=== PATIENT | male | born 1970 | race Asian ===

== ENCOUNTER 2022-11-13 15:11 | Outpatient (AMB) | payer MEDICAID, SELFPAY ==
[2022-11-13 15:20] VITALS: BP 124/72; PULSE 78; O2SAT 97; BMI 23.7
--- NOTE | 2022-11-13 15:20 | MHC.OFFVIS ---
Intake Vital Signs 11/13/22 15:20 Height 5 ft 8 in Weight 156 lb BMI 23.7 BP 124/72 Blood Pressure Location Rt brachial Position Sitting Pulse 78 Pulse Source Pulse Oximeter Pulse Oximetry (%) 97 Oxygen Delivery Method Room Air Intake Visit Reasons: ENP-Snoring - Confirmed Intake Note: Patient presents for snoring Allergies No Known Allergies Allergy (Verified 11/13/22 15:22) HPI HPI Comments History of Present Illness Details 52 y/o male patient presents with his for new in-person visit for sleep consultation. Pt's helps for history and interpretation. His reports that pt snoring loudly and it has been worsening. She witnessed apnea spells and gasping frequently. Pt reports non refreshing sleep with daytime sleepiness. He does not have energy, and being tired. He drinks 2 beers every night. Sleep questionnaire: Have you ever been diagnosed with a sleep disorder? No. Have you ever had a sleep study in the past? No. Have you ever been treated for a sleep disorder? No. Do you take medications for a sleep disorder? No. Do you snore? Yes. Do you wake up gasping at night? Yes. Do you have episodes of apneas? Yes. If yes, are they witnessed? Yes, by his . Do you have episodes of nocturnal chest pain or dyspnea? Yes, intermittently. Do you have difficulty initiating sleep? No. Do you have difficulty maintaining sleep? No. Do you wake up tired? Yes. Do you have headaches upon awakening? Yes. Do you wake up with dry mouth or throat? No. Do you have GERD? Yes. Do you have nocturia? No. Do you have nocturnal leg cramps? Yes. Do you have symptoms of restless legs? Not really, but numbness. Do you act out your dreams? No. Sleep hygiene questionnaire: What is your usual sleep routine? Usual bedtime is at 1 am ; Usual wake up time is at 8 am. Do you take naps? No. Is your sleep environment cool, dark, and quiet? Yes. Do you exercise? Yes. Do you take caffeine or other stimulants? No. Do you use electronics in bed? Yes. What is your work schedule? 11 am to 10 pm. Hypersomnolence questionnaire: Do you have daytime tiredness or fatigue? Yes. Do you easily fall asleep when inactive? No. Have you ever had episodes of sudden weakness? No. Have you ever had episodes of sudden weakness associated with strong emotions? No. PFSH Family History (Updated 11/13/22 @ 15:24 by GAIL Ramirez) Father Parkinson disease Mother Lung cancer Brother Liver cancer Social History (Updated 11/13/22 @ 15:24 by GAIL Ramirez) Alcohol intake: current Patient Tobacco Use Status: Never used Tobacco Review of Systems Const All systems reviewed & are unremarkable except as noted in HPI and below ENT Reports Normal hearing present Neuro Reports Normal hearing present Physical Exam Vital Signs: Last Vital Signs Pulse 78 11/13/22 15:20 BP 124/72 11/13/22 15:20 Pulse Ox 97 11/13/22 15:20 Oxygen Delivery Method Room Air 11/13/22 15:20 BMI result Body Mass Index 23.7 Const General: cooperative Nutritional Appearance: average body habitus Orientation/consciousness: patient oriented x3 Limitations: language barrier Neck Neck: Yes full ROM and Yes supple Resp Effort & Inspection: normal respiratory effort and able to speak in complete sentences Neuro General: patient oriented x3, gait normal and moves all extremities Cranial nerves: Yes Bilaterally intact EOM present, Yes Normal facial strength present, Yes Midline tongue present, Yes Symmetric palate elevation present and Yes Normal hearing present Cognition (Neuro): normal cognition Gait exam (Neuro): Normal gait present Motor exam (neuro): 5/5 motor strength present throughout, Pronator motor function not present and no tremor noted Psych Appearance: grossly normal Mental Status: mental status grossly normal Speech and movement: Normal speech and movement present Affect: normal affect Attitude: cooperative Assessment & Plan Assessment & Plan (1) Witnessed episode of apnea: Code(s): R06.81 - Apnea, not elsewhere classified (2) Daytime sleepiness: Code(s): R40.0 - Somnolence (3) Loud snoring: Code(s): R06.83 - Snoring Plan Pt is advised to undergo home sleep study to assess for sleep apnea. Will f/u with pt after study to discuss results and appropriate treatment options. Sleep hygiene education provided. Limit electronic use before bedtime. Advised patient to cut down alcohol intake. Start magnesium 400 mg qHS for legs cramping. Pt to call with any worsening concerns or questions. Orders: Orders RT home sleep study Today R06.81 - Apnea, not elsewhere classified, R06.83 - Snoring, R40.0 - Somnolence Medications: New magnesium oxide 400 mg PO DAILY 30 days 30 tabs 2RF Coding Level of Care Code New Pt Level 4 (08860) Diagnoses Witnessed episode of apnea R06.81 Daytime sleepiness R40.0 Loud snoring R06.83
== END 2022-11-13 15:57 | disposition home or self-care (01) ==
PROVIDERS: Visit Provider Nurse Practitioner Family
DX: R06.81 Apnea, not elsewhere classified (principal); R40.0 Somnolence; R06.83 Snoring
CPT/HCPCS: 99204

== ENCOUNTER → 2022-11-13 15:11 | Outpatient (BNVA) | payer MEDICAID, SELFPAY | PROVIDERS: Visit Provider Nurse Practitioner Family | DX: R06.81 Apnea, not elsewhere classified (principal); R40.0 Somnolence; R06.83 Snoring | CPT/HCPCS: 99204 ==

== ENCOUNTER → 2022-12-23 10:02 | Outpatient (REF) | payer MEDICAID, SELFPAY | LOC: HO.SL 10:02 | PROVIDERS: Visit Provider Nurse Practitioner Family | DX: G47.33 Obstructive sleep apnea (adult) (pediatric) (principal); R06.83 Snoring; R40.0 Somnolence | CPT/HCPCS: 95806 ==

== ENCOUNTER → 2022-12-23 10:09 | Outpatient (BNV) | payer MEDICAID, SELFPAY | PROVIDERS: Visit Provider Psychiatry & Neurology Neurology | DX: G47.33 Obstructive sleep apnea (adult) (pediatric) (principal) | CPT/HCPCS: 95806 ==

== ENCOUNTER 2023-03-19 15:13 | Outpatient (AMB) | payer MEDICAID, SELFPAY ==
--- NOTE | 2023-03-19 15:22 | MHC.OFFVIS ---
Intake Vital Signs 03/19/23 15:23 Height 5 ft 8 in Weight 158 lb 8 oz BMI 24.1 BP 138/70 Blood Pressure Location Rt brachial Position Sitting Respiration 16 Pulse 76 Pulse Source Pulse Oximeter Pulse Oximetry (%) 97 Oxygen Delivery Method Room Air Intake Visit Reasons: 4m follow up Snoring- Confirmed Intake Note: Pt presents to the office for a 4 month follow up for snoring. Allergies No Known Allergies Allergy (Verified 03/19/23 15:23) HPI HPI Comments History of Present Illness Details 52 y/o male patient presents for follow up of sleep study. The home sleep study result was significant for a moderate degree of sleep apnea. The AHI was 15/hr and oxygen jaky was 81%. Pt started APAP at [id number] in February. The CPAP compliance and therapy response reviewed. The usage days 24 days and the average usage hours 4 hrs 40 min. The max pressure was 13.8 and the residual AHI was 2.1/hr. Pt reports he sleeps much better, refreshed in the morning and daytime sleepiness has improved. He still drink 2 cans of beer daily. PFSH Family History Father Parkinson disease Mother Lung cancer Brother Liver cancer Social History Alcohol intake: current Patient Tobacco Use Status: Never used Tobacco Review of Systems Const All systems reviewed & are unremarkable except as noted in HPI and below ENT Reports Normal hearing present Neuro Reports Normal hearing present Physical Exam Vital Signs: Last Vital Signs Pulse 76 03/19/23 15:23 Resp 16 03/19/23 15:23 BP 138/70 03/19/23 15:23 Pulse Ox 97 03/19/23 15:23 Oxygen Delivery Method Room Air 03/19/23 15:23 BMI result Body Mass Index 24.1 Const General: cooperative Nutritional Appearance: average body habitus Orientation/consciousness: patient oriented x3 Limitations: language barrier Neck Neck: Yes full ROM and Yes supple Resp Effort & Inspection: normal respiratory effort and able to speak in complete sentences Neuro General: patient oriented x3, gait normal and moves all extremities Cranial nerves: Yes Bilaterally intact EOM present, Yes Normal facial strength present, Yes Midline tongue present, Yes Symmetric palate elevation present and Yes Normal hearing present Cognition (Neuro): normal cognition Gait exam (Neuro): Normal gait present Motor exam (neuro): 5/5 motor strength present throughout, Pronator motor function not present and no tremor noted Psych Appearance: grossly normal Mental Status: mental status grossly normal Speech and movement: Normal speech and movement present Affect: normal affect Attitude: cooperative Assessment & Plan Assessment & Plan (1) Sleep apnea: Comment: A moderate degree of sleep apnea. The AHI was 15/hr and oxygen jaky was 81%. Code(s): G47.30 - Sleep apnea, unspecified Plan Continue to use APAP [id number] as patient experiences good clinical effects, rested and refreshing sleep and daytime sleepiness has improved. Stressed compliance, use CPAP nightly and more than 4 hrs. Reduce alcohol intake. Coding Level of Care Code Est Pt Level 3 (59283) Diagnoses Sleep apnea G47.30
[2023-03-19 15:23] VITALS: BP 138/70; PULSE 76; RESP 16; O2SAT 97; BMI 24.1
== END 2023-03-19 15:40 | disposition home or self-care (01) ==
PROVIDERS: PCP Physician Assistant; Visit Provider Nurse Practitioner Family
DX: G47.30 Sleep apnea, unspecified (principal)
CPT/HCPCS: 99213

== ENCOUNTER → 2023-03-19 15:13 | Outpatient (BNVA) | payer MEDICAID, SELFPAY | PROVIDERS: PCP Physician Assistant; Visit Provider Nurse Practitioner Family | DX: G47.30 Sleep apnea, unspecified (principal) | CPT/HCPCS: 99212 ==

== ENCOUNTER 2023-12-24 15:31 | Outpatient (AMB) | payer MEDICAID, SELFPAY ==
--- NOTE | 2023-12-24 15:36 | A.OFFVIS_ITS ---
Vital Signs 12/24/23 15:38 Height 5 ft 8 in Weight 156 lb BMI 23.7 BP 110/62 Blood Pressure Location Rt brachial Position Sitting Respiration 16 Pulse 84 Pulse Source Pulse Oximeter Pulse Oximetry (%) 98 Oxygen Delivery Method Room Air Intake Visit Reasons: 6 mo f/u-Snoring- Intake Note: Pt presents to the office for a 9 month follow up for GERONIMO. Field Sales Specialist Required: No Allergies No Known Allergies Allergy (Verified 12/24/23 15:37) HPI Comments Details: 53 y/o male patient presents for follow up of sleep study. The home sleep study result was significant for a moderate degree of sleep apnea. The AHI was 15/hr and oxygen jaky was 81%. Pt started APAP at [id number] in February. The CPAP compliance and therapy response reviewed. 09/17/23-12/15/23 usage 62% - missed days due to visiting his mother who has cancer The max pressure was 12.3 and the residual AHI was 1.8/hr. median hrs used - 5hrs 15 mins Pt reports he sleeps much better, refreshed in the morning and daytime sleepiness has improved. He still drink 2 cans of beer daily. PFSH Family History Father Parkinson disease Mother Lung cancer Brother Liver cancer Social History Alcohol intake: current Patient Tobacco Use Status: Never used Tobacco Review of Systems ENT Reports Normal hearing present Neuro Reports Normal hearing present Physical Exam Vital Signs: Last Vital Signs Pulse 84 12/24/23 15:38 Resp 16 12/24/23 15:38 BP 110/62 12/24/23 15:38 Pulse Ox 98 12/24/23 15:38 Oxygen Delivery Method Room Air 12/24/23 15:38 BMI result Body Mass Index 23.7 Const General: cooperative Nutritional Appearance: average body habitus Orientation/consciousness: patient oriented x3 Limitations: language barrier Neck Neck: Yes full ROM and Yes supple Resp Effort & Inspection: normal respiratory effort and able to speak in complete sentences Neuro General: patient oriented x3, gait normal and moves all extremities Cranial nerves: Yes Bilaterally intact EOM present, Yes Normal facial strength present, Yes Midline tongue present, Yes Symmetric palate elevation present and Yes Normal hearing present Cognition (Neuro): normal cognition Assessment & Plan Assessment & Plan (1) Sleep apnea: Comment: A moderate degree of sleep apnea. The AHI was 15/hr and oxygen jaky was 81%. Code(s): G47.30 - Sleep apnea, unspecified Category: Medical Plan Continue to use APAP [id number] as patient experiences good clinical effects, rested and refreshing sleep and daytime sleepiness has improved. Stressed compliance, use CPAP nightly and more than 4 hrs. Reduce alcohol intake. Coding Level of Care Code Est Pt Level 4 (53077) Diagnoses Sleep apnea G47.30
[2023-12-24 15:38] VITALS: BP 110/62; PULSE 84; RESP 16; O2SAT 98; BMI 23.7
== END 2023-12-24 15:52 | disposition home or self-care (01) ==
PROVIDERS: Absent Provider Psychiatry & Neurology Neurology; PCP Physician Assistant; Visit Provider Psychiatry & Neurology Neurology
DX: G47.30 Sleep apnea, unspecified (principal)
CPT/HCPCS: 99214

== ENCOUNTER → 2023-12-24 15:31 | Outpatient (BNVA) | payer MEDICAID, SELFPAY | PROVIDERS: Absent Provider Psychiatry & Neurology Neurology; PCP Physician Assistant; Visit Provider Psychiatry & Neurology Neurology | DX: G47.30 Sleep apnea, unspecified (principal) | CPT/HCPCS: 99212 ==

== ENCOUNTER 2024-12-22 14:57 | Outpatient (AMB) | payer MEDICAID, SELFPAY ==
[2024-12-22 15:03] VITALS: BP 120/84; PULSE 85; O2SAT 96; BMI 24.1
--- NOTE | 2024-12-22 15:03 | A.OFFVIS_ITS ---
Vital Signs 12/22/24 15:03 Height 5 ft 8 in Weight 158 lb 4 oz BMI 24.1 BP 120/84 Blood Pressure Location Rt brachial Position Sitting Pulse 85 Pulse Source Pulse Oximeter Pulse Oximetry (%) 96 Oxygen Delivery Method Room Air Intake Visit Reasons: 1yr follow up Intake Note: Follow up Sleep apnea Central Supply Technician Supervisor Required: No Accompanied by: Spouse Allergies No Known Allergies Allergy (Verified 12/22/24 15:03) HPI Comments Details: 53 y/o male patient presents for follow up of sleep study. The home sleep study result was significant for a moderate degree of sleep apnea. The AHI was 15/hr and oxygen jaky was 81%. Pt started APAP at [id number] in February. The CPAP compliance and therapy response reviewed. 09/29- 12/30 usage 19% The max pressure was 12.3 and the residual AHI was 1.8/hr. median hrs used - 13hrs Pt reports he sleeps much better, refreshed in the morning and daytime sleepiness has improved. He still drink 2 cans of beer daily. PFSH Family History Father Parkinson disease Mother Lung cancer Brother Liver cancer Social History Alcohol intake: current Patient Tobacco Use Status: Never used Tobacco Review of Systems ENT Reports Normal hearing present Neuro Reports Normal hearing present Physical Exam Vital Signs: Last Vital Signs Pulse 85 12/22/24 15:03 BP 120/84 12/22/24 15:03 Pulse Ox 96 12/22/24 15:03 Oxygen Delivery Method Room Air 12/22/24 15:03 BMI result Body Mass Index 24.1 Const General: cooperative Nutritional Appearance: average body habitus Orientation/consciousness: patient oriented x3 Limitations: language barrier Neck Neck: Yes full ROM and Yes supple Resp Effort & Inspection: normal respiratory effort and able to speak in complete sentences Neuro General: patient oriented x3, gait normal and moves all extremities Cranial nerves: Yes Bilaterally intact EOM present, Yes Normal facial strength present, Yes Midline tongue present, Yes Symmetric palate elevation present and Yes Normal hearing present Cognition (Neuro): normal cognition Assessment & Plan Assessment & Plan (1) Sleep apnea: Comment: A moderate degree of sleep apnea. The AHI was 15/hr and oxygen jaky was 81%. Code(s): G47.30 - Sleep apnea, unspecified Category: Medical Qualifiers: Sleep apnea type: obstructive Qualified Code(s): G47.33 - Obstructive sleep apnea (adult) (pediatric) Plan Continue to use APAP [id number] as patient experiences good clinical effects, rested and refreshing sleep and daytime sleepiness has improved. says she will make sure he uses CPAP F/u in 2 mths with Subhana Stressed compliance, use CPAP nightly and more than 4 hrs. Reduce alcohol intake. Coding Level of Care Code Est Pt Level 4 (63133) Diagnoses Obstructive sleep apnea syndrome G47.33 Sleep apnea type: obstructive
--- OUTSIDE RECORDS SUMMARY | 2024-12-22 18:30 | XMS_ITS | Clinical Summary ---
Author Organization [facility] Address [address] [place] [address] Care Team Providers Care Utilization Reviewer Name Role Phone Unavailable Primary Care Provider Unavailabl e Encounters Date Type Department Care Team Description 10/26/2024 Population Health Risk Score [facility] ([facility]) Department [address] [id number] Provider, Population Health Generic from Last 3 Months Social History Tobacco Use Types Packs/Day Years Used Date Smoking Tobacco: Never Assessed Sex and Gender Information Value Date Recorded Sex Assigned at Not on file Legal Sex Male 9:20 PM EDT Gender Identity Not on file Sexual Orientation Not on file Plan of Treatment Health Maintenance Due Date Last Done Comments CT Colonography 1971 Colonoscopy 1971 Colorectal Cancer Screening 1971 Depression Screening 1971 FIT DNA/Cologuard 1971 FIT 1971 FOBT 1971 Lipid Panel 1971 SDOH Screening 1971 Sigmoidoscopy 1971 Disability Screening 1971 Alcohol/Substance Use Screening 1983 Tobacco Screening 1983 Hepatitis C Screening 11/07/1989 Hepatitis B Vaccines (1 of 3 - 19+ 3-dose series) 11/07/1990 COVID-19 Vaccine (2023-2 5 season) 2024 Influenza Vaccine (#1) 2024 DTaP/Tdap/Td Vaccines (2 - T d or Tdap) 07/29/2028 07/29/2018 RSV Patients and Patients Aged 60 years or older (1 - 1-dose 75+ series) 11/07/2046 HIV Screening Completed 08/21/2022, 08/21/2022 Pneumococcal Vaccine: 50+ Years Completed 11/10/2024 Zoster Vaccines Completed 11/10/2024, 10/15/2023 HIB Vaccines Aged Out No longer eligi ble based on patient's age to complete this topic HPV Vaccines Aged Out No longer eligi ble based on patient's age to complete this topic Hepatitis A Vaccines Aged Out No long er eligible based on patient's age to complete this topic IPV Vaccines Aged Out No longer eligi ble based on patient's age to complete this topic Meningococcal B Vaccine Aged Out No l onger eligible based on patient's age to complete this topic Meningococcal Vaccine Aged Out No asif valent[place] eligible based on patient's age to complete this topic RSV under 20 months Aged Out No longe r eligible based on patient's age to complete this topic Rotavirus Vaccines Aged Out No longer eligible based on patient's age to complete this topic
--- OUTSIDE RECORDS SUMMARY | 2024-12-22 18:30 | XMS_ITS | Clinical Summary ---
Author Organization [facility] Address [address] [place] [address] Care Team Providers Care Car Usher Name Role Phone Bronson Pollard PA-C Primary Care Provider Source Comments PLEASE NOTE, if this patient is a minor, it may be UNLAWFUL to discuss sensitive information that is contained in these records (such as FAMILY PLANNING, MENTAL HEALTH or SUBSTANCE ABUSE) with the minor patient's parent or other person without the patient's specific authorization.[facility] Allergies No known active allergies Medications hydrocortisone 1 % creamIndications:E xternal hemorrhoid Apply topically 2 (two) times daily 30 g 3 3 Active artificial tears,hypromellose , (GENTEAL) 0.3 % ophthalmic solutionIndication s:Dry eyes, bilateral Place 1 Drop into both eyes 4 (four) times daily 15 mL 2 4 Active cetirizine (ZYRTEC) 10 mg tabletIndications: Ear itch Take 1 Tablet by mouth once daily 90 Tablet 1 4 Active capsaicin (ICY HOT) 0.025 % patchIndications:C hronic bilateral low back pain without sciatica Place 1 Patch onto the skin every 8 (eight) hours as needed for pain. 10 Patch 1 5 Active fenofibrate micronized (LOFIBRA) 134 mg capsuleIndications :Hypertriglyceride panda Take 1 Capsule by mouth once daily with breakfast. 90 Capsule 1 5 Active fluticasone (FLONASE) 50 mcg/actuation nasal sprayIndications:S easonal allergies Place 1 [place] in both nostrils once daily. 16 g 5 5 Active ibuprofen 600 mg tabletIndications: Chronic bilateral low back pain without sciatica Take 1 Tablet by mouth 4 (four) times daily as needed for moderate pain or pain. 60 Tablet 1 5 Active ketoconazole (NIZORAL) 2 % shampooIndications :Seborrheic dermatitis of scalp APPLY EXTERNALLY EVERY DAY NEEDED FOR ITCHING. 120 mL 2 5 Active omeprazole (PRILOSEC) [address] capsuleIndications :Gastroesophageal reflux disease without esophagitis Take 1 Capsule by mouth every morning before breakfast. 90 Capsule 1 5 Active phenyleph-pramoxin -glycr-w.pet (PREPARATION H) 0.25-1 % rectal creamIndications:H emorrhoids, unspecified hemorrhoid type Place rectally 4 (four) times daily as needed for hemorrhoids. 26 g 1 5 Active pravastatin (PRAVACHOL) 10 mg tabletIndications: Mixed hyperlipidemia Take 1 Tablet by mouth once daily. 90 Tablet 1 5 Active white petrolatum-mineral oiL creamIndications:D ry skin Apply topically as needed for dry skin or itching. 454 g 3 5 Active clotrimazole (LOTRIMIN) 1 % creamIndications:T inea pedis of both feet Apply topically 2 (two) times daily. 15 g 1 5 Active Active Problems Problem Noted Date Diagnosed Date Hypertriglyceridemia 08/29/2022 Gastroesophageal reflux disease without esophagi tis 08/21/2022 Chronic midline low back pain with left-sided sc iatica 07/25/2021 Dry skin 07/25/2021 Vitamin D deficiency 07/29/2018 Hepatitis B core antibody positive 02/20/2016 Overview (11/22/2016): Hep B Core IgG+. HBV= not detected Chronic tension-type headache, not intractable 0 12/21/2015 Overview (12/21/2015): Occipital headache x 3 yrs. Had fall on stairs 2 yrs ago. Almost daily headaches. CT scan at [facility] neg( 06/21/14) Dyslipidemia 12/21/2015 Seasonal allergies 12/21/2015 Resolved Problems Problem Noted Date Diagnosed Date Resolved Date Epigastric pain 12/21/2015 05/22/2022 Overview (12/21/2015): Pain x 1 yr. Continuous Pain with touch as per pt. Encounters Date Type Department Care Team Description 11/11/2024 Results Follow-Up [address] [phone] Bronson Pollard PA-C 11/10/2024 2:20 PM EDT Office Visit [address] [phone] Bronson Pollard PA-C from Last 3 Months Immunizations Immunization Administration Dates Next Due PNEUMOCOCCAL CONJUGATE PCV 20 (Prevnar 20) 11/10 TDAP 07/29/2018 ZOSTER VACCINE, RECOMBINANT (SHINGRIX) 5,10/15/2023 Family History Medical History Relation Name Comments Other Father High Cholesterol Mother Other Mother Colon Cancer Paternal Grandfather Lung Disease Paternal Grandmother Cancer Sister Relation Name Status Comments Brother Father Alive Mother Alive Paternal Grandfather Paternal Grandmother Sister Social History Tobacco Use Types Packs/Day Years Used Date Smoking Tobacco: Never Smokeless Tobacco: Never Tobacco Cessation:Counseling Given: Not Answered Alcohol Use Standard Drinks/Week Comments Yes 0 (1 standard drink = 0.6 oz pur e alcohol) 2 beers/day Social Connections Answer Date Recorded Connectedness 0 08/21/2022 Financial Resource Strain Answer Date R ecorded Financial Resource Strain 0 2022 Stress Answer Date Recorded Stress 0 08/21/2022 Physical Activity Answer Date Recorded Physical Activity 0 11/29/2018 Food Insecurity Answer Date Recorded Food 0 08/21/2022 Transportation Needs Answer Date Record ed Transportation 0 08/21/2022 Housing Stability Answer Date Recorded Housing 0 08/21/2022 Safety and Environment Answer Date Marcelino rded Safety 0 11/29/2018 Utilities Answer Date Recorded Utilities 0 08/21/2022 Employment Answer Date Recorded Employment 0 11/29/2018 Sex and Gender Information Value Date Recorded Sex Assigned at Male 07/20/2018 8:54 AM PDT Legal Sex Male 7:19 AM PDT Gender Identity Male 07/20/2018 8:53 AM PDT Sexual Orientation Straight 07/20/2018 8: 53 AM PDT Occupation Industry Job Start Date Job End Date [employer] Not on file Not on file Not on fi le Last Filed Vital Signs Vital Sign Reading Time Taken Comments Blood Pressure 130/90 11/10/2024 2:06 PM EDT Pulse 85 11/10/2024 2:06 PM EDT Temperature 36.8 C (98.3 F) 11/10/2024 2:06 PM EDT Respiratory Rate 16 11/10/2024 2:06 PM EDT Oxygen Saturation 98% 11/10/2024 2:06 PM EDT Inhaled Oxygen Concentration - - Weight 69.9 kg (154 lb 3.2 oz) 11/10/2024 2:06 P M EDT Height 175.3 cm (5' 9 ) 10/15/2023 10:09 AM EDT Body Mass Index 22.77 10/15/2023 10:09 AM EDT Plan of Treatment Health Maintenance Due Date Last Done Comments Anxiety Screening [address] CT Colonography 11/07/2016 Colonoscopy 11/07/2016 Colorectal Cancer Screening 11/07/2016 FIT/gFOBT 11/07/2016 Fecal DNA 11/07/2016 Flexible Sigmoidoscopy 11/07/2016 Depression Annual Screen 04/07/2024 10/15/2023, 12/06 [id number] ( season) 2024 Imm-Influenza (#1) 2024 Annual Wellness (Adult): Indicated (All Coverage) 11/10/2025 11/10/2024, 11/10/2024, 10/15/2023, Additional history exists Hypertension Screening (#1) 11/10/2025 Lipid Screening 11/10/2025 11/10/2024, 10/05, 08/21/2022, Additional history exists Tobacco Screening 11/11/2025 11/11/2024 Diabetes Screening 10/14/2026 10/15/2023, 0 08/21/2022, 07/25/2021, Additional history exists Imm-DTaP/Tdap/Td (2 - Td or Tdap) 07/29/2028 019, 07/29/2018 Hepatitis C Screening Completed 07/29/2018 , 07/29/2018, 02/15/2016 HIV Screening Completed 08/21/2022, 042 07/2018, 07/29/2018 Syphilis Screening Discontinued 08/21/2022, 0 07/29/2018, 07/29/2018 Alcohol and Drug Screen Completed 11/11/19, 10/15/2023, 08/21/2022, Additional history exists Imm-Pneumococcal 50+ Completed 11/10/2024 Imm-Zoster, Recombinant Completed 11/10/2024, 10/14 Imm-Hepatitis B Discontinued Procedures Procedure Name Priority Date/Time Associated Diagnosis Comments HEPATIC FUNCTION PANEL Routine 3:13 PM EDT Encounter for annual physical exam LIPID PANEL Routine 11/10/2024 3:13 PM EDT Encounter for annual physical exam COMPREHENSIVE METABOLIC PANEL Routine 10/15/2023 11:01 AM EDT Encounter for annual physical exam HIV 1/2 AG & AB W/RFLX (4TH GEN) Routine 08/21/2022 10:13 AM EDT Screening for viral disease RPR W/RFLX TITER+FTA+CONF Routine 08/21/2022 10:13 AM EDT Screen for STD (sexually transmitted disease) HEPATITIS C ANTIBODY Routine 07/29/2018 4:27 PM EDT Encounter for general adult medical examination w/o abnormal findings from Last 3 Months or Most Recently Relevant to Health Maintenance Results * HEPATIC FUNCTION PANEL Routine (11/10/2024 3:13 PM EDT) [facility] PROTEIN, TOTAL 7.0 6.1 - 8.1 g/dL 11/11/2024 6:12 AM EDT [facility] ALBUMIN 4.5 3.6 - 5.1 g/dL 11/11/2024 6:12 AM EDT [facility] GLOBULIN 2.5 1.9 - 3.7 g/dL (calc) 11/11/2024 6:12 AM EDT [facility] ALBUMIN/GLOBULIN RATIO 1.8 1.0 - 2.5 (calc) 11/11/2024 6:12 AM EDT [facility] BILIRUBIN, TOTAL 0.5 0.2 - 1.2 mg/dL 11/11/2024 6:12 AM EDT [facility] BILIRUBIN, DIRECT 0.1 0.0 - 0.2 mg/dL 11/11/2024 6:12 AM EDT [facility] BILIRUBIN, INDIRECT 0.4 0.2 - 1.2 mg/dL (calc) 11/11/2024 6:12 AM EDT [facility] ALKALINE PHOSPHATASE 41 35 - 144 U/L 11/11/2024 6:12 AM EDT [facility] AST 16 10 - 35 U/L 11/11/2024 6:12 AM EDT [facility] ALT 14 9 - 46 U/L 11/11/2024 6:12 AM EDT [facility] Blood Blood / Unknown 11/10/2024 3 :13 PM EDT 11/11/2024 4:37 AM EDT Bronson Pollard PA-C LAB - BLOOD DRAW Final Resul t [facility] [address] [address], [facility] [address] [address] * (ABNORMAL) LIPID PANEL Routine (11/10/2024 3:13 PM EDT) CHOLESTEROL, TOTAL 238(H) <200 mg/dL 11/11/2024 6:12 AM EDT [facility] HDL CHOLESTEROL 76 > OR = 40 mg/dL 11/11/2024 6:12 AM EDT [facility] TRIGLYCERIDES 86 <150 mg/dL 11/11/2024 6:12 AM EDT [facility] LDL-CHOLESTEROL 143(H) mg/dL (calc) 11/11/2024 6:12 AM EDT [facility] CHOL/HDLC RATIO 3.1 <5.0 (calc) 11/11/2024 6:12 AM EDT [facility] NON-HDL CHOLESTEROL 162(H) <130 mg/dL (calc) 11/11/2024 6:12 AM EDT [facility] Blood Blood / Unknown 11/10/2024 3 :13 PM EDT 11/11/2024 4:37 AM EDT Narrative [facility] - 11/11/2024 6:16 AM EDT Reference range: <100 . Desirable range <100 mg/dL for primary prevention; <70 mg/dL for patients with CHD or diabetic patients with > or = 2 CHD risk factors. . LDL-C is now calculated using the Genia calculation, which is a validated novel method providing better accuracy than the Friedewald equation in the estimation of LDL-C. Lamonte SS et al. BERNICE. 2013;310(65): 9367-1502 (http://education.Haozu.com/faq/DAM925) For patients with diabetes plus 1 major ASCVD risk factor, treating to a non-HDL-C goal of <100 mg/dL (LDL-C of <70 mg/dL) is considered a therapeutic option. us Bronson Pollard PA-C LAB - BLOOD DRAW Final Resul t [facility] [address] [place] [id number], [facility] [address] [place] [id number] * COMPREHENSIVE METABOLIC PANEL (10/15/2023 11:01 AM EDT) GLUCOSE 90 65 - 99 mg/dL [facility] Comment: Fasting reference interval UREA NITROGEN (BUN) 24 7 - 25 mg/dL [facility] CREATININE (blood) 0.87 0.70 - 1.30 mg/dL [facility] EGFR 104 > OR = 60 mL/min/1. 73m2 [facility] BUN/CREATININE RATIO SEE NOTE: 6 [facility] Comment: Not Reported: BUN and Creatinine are within reference range. SODIUM 137 135 - 146 mmol/L [facility] POTASSIUM 4.1 3.5 - 5.3 mmol/L [facility] CHLORIDE 102 98 - 110 mmol/L [facility] CARBON DIOXIDE 28 20 - 32 mmol/L [facility] CALCIUM 9.1 8.6 - 10.3 mg/dL [facility] PROTEIN, TOTAL 7.4 6.1 - 8.1 g/dL [facility] ALBUMIN 4.6 3.6 - 5.1 g/dL [facility] GLOBULIN 2.8 1.9 - 3.7 g/dL (calc) [facility] [place] [facility] ALBUMIN/GLOBULI N RATIO 1.6 1.0 - 2.5 (calc) [facility] [place] [facility] BILIRUBIN, TOTAL 0.3 0.2 - 1.2 mg/dL [facility] ALKALINE PHOSPHATASE 40 35 - 144 U/L [facility] [place] [facility] AST 21 10 - 35 U/L [facility] Comment: Verified by repeat analysis. ALT 19 9 - 46 U/L [facility] Comment: Verified by repeat analysis. Blood Blood / Unknown 10/15/2023 1 1:01 AM EDT 10/15/2023 11:02 AM EDT Narrative [employer] - 10/16/2023 8:33 AM EDT FASTING:YES Bronson Pollard PA-C LAB - BLOOD DRAW Final Resul t [facility] [address] [address], [facility] [address] [address] * HIV 1/2 AG & AB W/RFLX (4TH GEN) (08/21/2022 10:13 AM EDT) HIV AG/AB, 4TH GEN NON-REAC TIVE NON-REAC TIVE [facility] Comment: HIV-1 antigen and HIV-1/HIV-2 antibodies were not detected. There is no laboratory evidence of HIV infection. PLEASE NOTE: This information has been disclosed to you from records whose confidentiality may be protected by state law. If your state requires such protection, then the state law prohibits you from making any further disclosure of the information without the specific written consent of the person to whom it pertains, or as otherwise permitted by law. A general authorization for the release of medical or other information is NOT sufficient for this purpose. For additional information please refer to http://education.Authernative.TUBE/faq/ZXR399 (This link is being provided for informational/ educational purposes only.) The performance of this assay has not been clinically validated in patients less than 2 years old. Blood Blood / Unknown 08/21/2022 1 0:13 AM EDT 08/21/2022 10:14 AM EDT [facility] - 08/22/2022 8:30 PM EDT FASTING:YES us Gibsonmarco FRIEDMAN-C LAB - BLOOD DRAW Final Resul t Performing Organization Address [facility] de Phone Number [facility] [address] [address], [facility] [address] [address] * RPR W/RFLX TITER+FTA+CONF (08/21/2022 10:13 AM EDT) RPR (DX) W/REFL TITER AND CONFIRMATORY TESTING NON-REACT POLI NON-REACT POLI [facility] Blood Blood / Unknown 08/21/2022 1 0:13 AM EDT 08/21/2022 10:14 AM EDT [facility] - 08/22/2022 8:30 PM EDT FASTING:YES us Salcedoyuko FRIEDMAN-Michael LAB - BLOOD DRAW Final Resul t Performing Organization Address [facility] de Phone Number [facility] [address] [address], [facility] [address] [address] * HEPATITIS C ANTIBODY (07/29/2018 4:27 PM EDT) HEPATITIS C VIRUS SCREEN NEGATIVE NEGATIVE [facility] Blood specimen (specimen) Blood / Unknown 07/29/2018 4:27 PM EDT 07/29/2018 4:29 PM EDT [facility] 07/29/2018 7:54 PM EDT [employer], a member of [address] [address] Insulator Helper - Lalita Gonzalez MD [place] ID [id number] ORD# [id number] Priscila Waldron [employer] LAB - BLOOD DRAW Final Resu lt [facility] [address] [place] [address], from Last 3 Months or Most Recently Relevant to Health Maintenance Insurance [id number] [facility] [employer] Care Teams Car Usher Relationship Specialty Start Date End Date Bronson Pollard PA-C [address] [place] [address] PCP - General 09/14/21
== END 2024-12-22 15:26 | disposition home or self-care (01) ==
LOC: HO.HSMS 14:58
PROVIDERS: PCP Physician Assistant; Visit Provider Psychiatry & Neurology Neurology
DX: G47.33 Obstructive sleep apnea (adult) (pediatric) (principal)
CPT/HCPCS: 99214

== ENCOUNTER → 2024-12-22 14:57 | Outpatient (BNVA) | payer MEDICAID, SELFPAY | PROVIDERS: PCP Physician Assistant; Visit Provider Psychiatry & Neurology Neurology | DX: G47.33 Obstructive sleep apnea (adult) (pediatric) (principal) | CPT/HCPCS: 99212 ==